=== PATIENT | male | born 1995 | race Caucasian/White ===

== ENCOUNTER 2023-03-13 12:38 | Observation (INO) | payer BC ==
[2023-03-13] MEDS ORDERED: ACETAMINOPHEN TAB 500 MG TAB PO STA (14:24)
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
[2023-03-13] MEDS ORDERED: SODIUM CHLORIDE 0.9% 1,000 ML IV STA (15:15)
[2023-03-13] MEDS ORDERED: NALOXONE 0.4 MG/ML 1 ML VIAL IV PRN (15:15)
[2023-03-13 15:52] LABS: Basophils # (A) 0.1 k/uL (0-0.2); Basophils % (A) 1 %; Eosinophils # (A) 0.1 k/uL (0-0.7); Eosinophils % (A) 1 %; HCT 48.1 % (39.0-53.0); HGB 15.6 gm/dL (13.0-17.5); Lymphocytes # (A) 1.8 k/uL (1.0-4.8); Lymphocytes % (A) 21 %; MCH 29.8 pg (25.0-35.0); MCHC 32.5 g/dL (31.0-37.0); MCV 91.9 fL (80.0-100.0); Mean Platelet Volume 6.8; Monocytes # (A) 0.4 k/uL (0-1.0); Monocytes % (A) 4 %; Neutrophils # (A) 6.5 k/uL (1.3-7.7); Neutrophils % (A) 73 %; Platelet Count 338 k/uL (150-450); RBC 5.23 m/uL (4.30-5.90); RDW 11.8 % (11.5-15.5); WBC 8.9 k/uL (3.8-10.6)
[2023-03-13 16:15] LABS: ALT 78 U/L (4-49); AST 46 U/L (17-59); African American GFR (CKD) >90 (>60 ml/min/1.73 sqM); Albumin 4.7 g/dL (3.5-5.0); Alkaline Phosphatase 78 U/L (38-126); Anion Gap 10 mmol/L; Blood Urea Nitrogen 15 mg/dL (9-20); Calcium 9.8 mg/dL (8.4-10.2); Carbon Dioxide 28 mmol/L (22-30); Chloride 101 mmol/L (98-107); Glucose 97 mg/dL (74-99); Non-African American GFR(CKD) >90 (>60 ml/min/1.73 sqM); Potassium 4.4 mmol/L (3.5-5.1); Sodium 139 mmol/L (137-145); Total Bilirubin 0.9 mg/dL (0.2-1.3)
[2023-03-13] MEDS: SODIUM CHLORIDE 0.9% 1,000 ML IV SCH (16:38)
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
[2023-03-13 18:33] LABS: Alcohol <10 mg/dL
[2023-03-13 19:53] LABS: Amphetamine Screen,Urine Not Detected (NotDetected); Barbiturate Screen,Urine Not Detected (NotDetected); Benzodiazepines Screen,Urine Not Detected (NotDetected); Cocaine Screen,Urine Not Detected (NotDetected); Methadone Screen, Urine Not Detected (NotDetected); Opiate Screen,Urine Not Detected (NotDetected); Oxycodone Screen, Urine Not Detected (NotDetected); Phencyclidine Screen,Urine Not Detected (NotDetected); Tricyclic Antidepressant,Urine Not Detected (NotDetected); Urn Cannabinoid Scrn Detected (NotDetected)
[2023-03-14] MEDS: SODIUM CHLORIDE 0.9% 1,000 ML IV SCH (05:12)
[2023-03-14 07:39] VITALS: BP 129/73; PULSE 68; RESP 18; TEMP 98.2
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
--- NOTE | 2023-03-14 14:18 | P.PN ---
Subjective Progress Note Date: 03/14/23 Patient is accompanied with his mother was at bedside. Seems the patient is better today compared that to the yesterday. The mother feels he is totally the 900% back to baseline but is better. No new neurological issues. Objective - Vital Signs Vital signs: Vital Signs Temp 98.2 F 03/14/23 07:30 Pulse 68 03/14/23 08:00 Resp 18 03/14/23 08:00 BP 129/73 03/14/23 07:30 Pulse Ox 97 03/14/23 07:30 FiO2 Intake & Output 03/13/23 03/14/23 03/14/23 18:59 06:59 18:59 Weight 77.111 kg Other: Voiding Method Toilet # Voids 3 - Exam GENERAL: The patient is not in acute distress. NEUROLOGICAL: Higher mental function: The patient is awake, alert, oriented to self. place and time. No aphasia and no neglect. Cranial nerves: The pupils are round, equal and reactive to light and accommodation. Visual mc are full to confrontation throughout. Extraocular movement is intact no nystagmus is noted. Facial sensation is normal to touch throughout. The facial strength is normal throughout. Tongue is midline and moved [id number] without any difficulty. No dysarthria is noted. Shoulder shrug is normal bilaterally. Motor: The strength is 5 over 5 throughout. Normal tone and bulk. Cerebellum: Normal finger to nose heel to [place] bilaterally. Sensation: Sensation is normal to touch throughout. Reflexes (right/left):2+ throughout.. Plantars are downgoing bilaterally. Some of the workup done during his hospital visit consisted of: CT of the head and cervical spine is reported as no acute intracranial processes. No evidence of cervical os my fracture. I personally reviewed the CT head reviewed the report. CBC and differential is unremarkable Chemistry panel is that ALT is 78 otherwise rest the is normal. Vitamin B12 738 Folate is 17.20 His TSH is 2.20 Ammonia level is less than 9 Urine drug screen is positive for marijuana and the serum alcohol was less than 10 otherwise rest is not detected. - Labs CBC & Chem 7: 03/13/23 15:34 03/13/23 15:34 Labs: Abnormal Lab Results - Last 24 Hours (Table) 03/13/23 03/13/23 Range/Units 15:34 19:15 ALT 78 H (4-49) U/L U Marijuana (THC) Screen Detected H (NotDetected) Assessment and Plan Assessment: This is a 27-year-old the young gentleman who about a week ago slipped off of a Dr. 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 Recommend she to follow-up with a neurologist as an outpatient within normal to 2 weeks and for consideration of MRI of the brain if he continues to have episodes of confusion. We'll defer the rest of the medical management to primary team Patient was counseled on the cessation of the taping as well as socially drinks alcohol. Otherwise no additional workup is needed. Time with Patient: Less than 30
--- NOTE | 2023-03-14 20:47 | EEG ---
ELECTROENCEPHALOGRAM REPORT CLINICAL HISTORY: This is a 27-year-old gentleman with head trauma about a week ago and had episode of confusion a week later. The video EEG is obtained to evaluate for seizure epileptiform activity. RELEVANT MEDICATION: The patient is not on any antiseizure medication. EEG TYPE: A routine 21-channel EEG is performed with video using the 10/20 electrode placement system. DESCRIPTION: Wakefulness is only obtained. During awake state, the posterior-dominant rhythm consists of [id number] voltage of 10 to 10.5 hertz activity that is well modulated and well sustained. There is no physiological stage 2 sleep architecture. There is no focal slowing. Interictal and ictal is none. ACTIVATION PROCEDURE: Photic stimulation did evoke a posterior driving response at 40 hertz activity. There is no abnormality during the photic stimulation. Hyperventilation is not performed. CLINICAL INTERPRETATION: This is a normal routine EEG. There is no focal slowing, epileptiform discharge, or seizure on the EEG. A normal routine EEG does not rule out underlying epilepsy. Clinical correlation is recommended. MMCHELY / OLEKSANDR: [id number] / [email or web address]
== END 2023-03-14 14:02 | disposition home or self-care (01) ==
LOC: EC 12:38 → 6NMEDSUR 15:58 → INTOOBSV 15:58 → 6NMEDSUR 17:38
PROVIDERS: ADMIT Student in an Organized Health Care Education/Training Program; ATTEND Student in an Organized Health Care Education/Training Program
DX: S06.0XAA Concussion with loss of consciousness status unknown, initial encounter (principal); F17.290 Nicotine dependence, other tobacco product, uncomplicated; F12.90 Cannabis use, unspecified, uncomplicated; R74.01 Elevation of levels of liver transaminase levels; R56.00 Simple febrile convulsions; F10.90 Alcohol use, unspecified, uncomplicated; Z87.820 Personal history of traumatic brain injury; Z91.041 Radiographic dye allergy status; V86.56XA Driver of dirt bike or motor/cross bike injured in nontraffic accident, initial encounter; Y90.0 Blood alcohol level of less than 20 mg/100 ml
CPT/HCPCS: 96360; 99285; 36415; 95816; 80053; 84443; 82607; 82140; 82746; 85025; 80306; 80320; 72125; 70450; G0378 ×2